=== PATIENT | male | born 1975 | race Caucasian/White ===

== ENCOUNTER → 2016-06-23 | Outpatient (CLI) | payer SELFPAY ==
--- NOTE | 2016-06-23 10:56 | DI ---
XR WRIST COMPLETE MIN 3VW,06/23/2016 9:12 AM: Clinical History: Left wrist pain. Previous Exam: February 02, 2016 Findings: 3 views of the left wrist are obtained, and demonstrate a stable screw and plate fixation of the left distal radius with some sclerosis. There is a small nondisplaced left distal ulnar styloid fracture. Impression: Mild interval healing since the prior exam.
== END ==
LOC: ORTHO 09:18
PROVIDERS: ATTEND Orthopaedic Surgery
DX: S52.612E Displaced fracture of left ulna styloid process, subsequent encounter for open fracture type I or II with routine healing (principal)
CPT/HCPCS: 73110